=== PATIENT | female | born 1975 | race American Indian/Alaskan Native ===

== ENCOUNTER 2017-03-01 00:14 | Emergency (ER) | payer SELFPAY | END 2017-03-01 02:40 | disposition left against medical advice (07) | LOC: ED 00:14 | DX: M79.1 Myalgia (principal); Z53.21 Procedure and treatment not carried out due to patient leaving prior to being seen by health care provider ==

== ENCOUNTER 2017-07-19 08:59 | Emergency (ER) | payer MEDICAID, OTHER ==
[2017-07-19] MEDS ORDERED: CATAPRES ONE (09:12)
[2017-07-19] MEDS ORDERED: CATAPRES PO ONE ×3 (09:15→13:39)
--- NOTE | 2017-07-19 10:48 | Emergency Department Report ---
Upper Extremity - HPI Chief Complaint: Neck Pain/Injury Stated Complaint: LEFT FLANK PAIN Time Seen by Provider: 07/19/17 10:39 Upper Extremity: Left Shoulder Occurred When: 1 Day Mechanism: Unsure Severity: severe Symptoms: Yes Pain with Movement, Yes Limited Range of Movement, No Deformity, No Numbness, No Weakness, No Swelling, No Bruising/Ecchymosis, No Laceration or Abrasion Other History: This is a 41 y.o. female that presents with left shoulder pain for 2 days. Patient reports pain started last night. She was unable to move left arm when she got home from work. 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 She does not recall injury. She have not taken anything for symptom relief. Denies numbness/tingling, swelling, redness, or injury. ED Review of Systems ROS: Stated complaint: LEFT FLANK PAIN Other details as noted in HPI Constitutional: denies: chills, fever Respiratory: denies: cough, shortness of breath, wheezing Cardiovascular: denies: chest pain, palpitations, edema, syncope Gastrointestinal: denies: abdominal pain, nausea, diarrhea Musculoskeletal: arthralgia (left shoulder pain, decreased ROM). denies: back pain, joint swelling Skin: denies: rash, lesions, change in color Neurological: denies: headache, weakness, numbness, paresthesias Psychiatric: denies: anxiety, depression ED Past Medical Hx - Past Medical History Hx Hypertension: Yes - Surgical History Past Surgical History?: No - Social History Smoking Status: Current Every Day Smoker Substance Use Type: None - Medications Home Medications: Home Medications Medication Instructions Recorded Confirmed Last Taken Type Amlodipine Besylate/Benazepril 1 cap PO DAILY 01/25/13 01/25/13 Unknown History [Amlodipine-Benazepril 10-20 mg] Hydrochlorothiazide [HCTZ] 01/25/13 01/25/13 Unknown History Lisinopril [Zestril] 10 mg PO QDAY 01/25/13 01/25/13 Unknown History Diclofenac Potassium 50 mg PO TID PRN #20 tablet 07/19/17 Unknown Rx tiZANidine [Zanaflex] 4 mg PO TID PRN #15 tablet 07/19/17 Unknown Rx Upper Extremity Exam - Exam General: Vital signs noted. No distress. Alert and acting appropriately. Head and Torso: No HEENT Abnormality, No Neck Tenderness, No Chest/Lungs Abnormality, No Abdominal Tenderness, No Back Tenderness Shoulder Exam: Yes Shoulder Tenderness, Yes AC Joint Tenderness (subacromial tenderness), No Clavicle Tenderness, No Normal Range of Motion in Shoulder ( painful passive and active ROM. There is pain at 60 degree at passive ROM.), No Shoulder Deformity Arm Exam: No Arm/Humerus Tenderness, No Arm Deformity Elbow: Yes Normal Range of Motion in Elbow, No Elbow Tenderness, No Elbow Deformity Forearm: No Forearm Tenderness, No Forearm Deformity, No Pain with Pronation, No Pain with Supination Wrist: Yes Normal ROM in Wrist, No Wrist Tenderness, No Wrist Deformity, No Snuffbox Tenderness, No Pain with Axial Thumb Compression Hand: Yes Normal ROM in Digit(s), No Hand Tenderness, No Hand Deformity, No Digit Tenderness, No Digit(s) Deformity, No Tendon Dysfunction CMS Exam: Yes Normal Distal Pulses, Yes Normal Capillary Refill, Yes Normal Distal Sensation, No Broken Skin ED Course Vital Signs 07/19/17 07/19/17 07/19/17 09:04 09:10 10:10 Temperature 98.6 F 98.6 F Pulse Rate 89 Respiratory 16 Rate Blood Pressure 199/120 196/110 [Right] O2 Sat by Pulse 99 Oximetry ED Medical Decision Making - Radiology Data Radiology results: report reviewed XR left shoulder: Routine views demonstrate normal bony and soft tissue structures with normal joint alignment of the shoulder. - Medical Decision Making This is a 41 y.o. female presents with left shoulder pain that is radiating down arm for 1 day. Patient was examined by me. Physical findings susceptible of tendinopathy. There is subacromial tenderness and painful passive and active ROM. There is pain at 60 degree at passive ROM. Xray of left shoulder obtained and normal scan. Patient blood pressure elevated. History of BP on amlodipine and HCTZ. Given catapress 0.1 mg x 3 doses and potassium 40 mEq once in ER. Blood pressure trending down. Patient informed of results. Plan discussed with patient to discharge home and treat outpatient. Start diclofenac and zanaflax. Patient discharged home in stable condition. Follow up with PCP in 2-3 days. Critical care attestation.: If time is entered above; I have spent that time in minutes in the direct care of this critically ill patient, excluding procedure time. ED Disposition Clinical Impression: Tendinitis of shoulder Qualifiers: Laterality: left Qualified Code(s): M75.82 - Other shoulder lesions, left shoulder Hypertension Qualifiers: Hypertension type: essential hypertension Qualified Code(s): I10 - Essential ( primary) hypertension Disposition: TO HOME OR SELFCARE Is pt being admited?: No Does the pt Need Aspirin: No Condition: Stable Instructions: Tendinitis (ED), Hypertension (ED) Additional Instructions: Rest Use ice or heat on affected area for 20 minutes and off for 2 hours. Take pain medication as needed for pain. Don't drive or operate heavy machinery while taking muscle relaxers because they may cause drowsiness. Follow up with Primary Care Provider in 2-3 days for management of hypertension (elevated blood pressure). Prescriptions: Diclofenac Potassium 50 mg PO TID PRN #20 tablet PRN Reason: Pain tiZANidine [Zanaflex] 4 mg PO TID PRN #15 tablet PRN Reason: Muscle Spasm Referrals: [facility] [Outside] - 3-5 Days [facility] [Outside] - 3-[address] [facility] [Outside] - 3-5 Days Forms: Work/School Release Form(ED) Time of Disposition: 12:45 Print Language: YORUBA
[2017-07-19] MEDS ORDERED: NORCO 7.5/325 PO ONE (11:09)
--- NOTE | 2017-07-19 12:18 | XRay Report ---
LEFT SHOULDER: History: Left shoulder pain. Routine views demonstrate normal bony and soft tissue structures with normal joint alignment of the shoulder. IMPRESSION: Normal study.
[2017-07-19] MEDS ORDERED: DECADRON IM ONE (12:55)
[2017-07-19] MEDS ORDERED: K-DUR PO ONE (13:34)
[2017-07-19 14:40] VITALS: BP 128/83
== END 2017-07-19 15:19 | disposition home or self-care (01) ==
LOC: ED 08:59
DX: M75.82 Other shoulder lesions, left shoulder (principal); I10 Essential (primary) hypertension; F17.200 Nicotine dependence, unspecified, uncomplicated
CPT/HCPCS: 73030; 96372; 99283; J1100

== ENCOUNTER 2019-01-21 21:03 | Emergency (ER) | payer OTHER ==
[2019-01-22] MEDS ORDERED: CATAPRES PO ONE (00:56)
--- NOTE | 2019-01-22 01:53 | Cat Scan Report ---
CT head without contrast INDICATION : Headache with severe hypertension. TECHNIQUE: Axial imaging performed from the skull apex through the skull base without the use of con trast. All CT examinations performed at this facility utilize dose modulation, iterative reconstruct ion or weight-based dosing, when appropriate, to reduce radiation dose to as low as reasonably achiev able. COMPARISON: None FINDINGS: No acute intracranial hemorrhage or parenchymal abnormality. Ventricles are normal in si ze and appear symmetric. Soft tissues including the orbits appear normal. No acute osseous abnorm ality. Sinuses and mastoid air cells are clear. IMPRESSION: No acute abnormality. Signer Name: Clay Serra MD Signed: 01/22/2019 1:48 AM Workstation Name: [id number]
[2019-01-22 02:28] VITALS: BP 163/102
--- NOTE | 2019-01-22 02:35 | Emergency Department Report ---
ED General Adult HPI - General Chief complaint: High BP Stated complaint: HIGH BP Time Seen by Provider: 01/22/19 02:16 Source: patient Mode of arrival: Ambulatory Limitations: No Limitations - History of Present Illness Initial comments: Ms Hernandes is a 43-year-old -[place] female with a history of hypertension currently prescribed amlodipine hydrochlorothiazide and losartan HIDA patient is nonadherent with blood pressure treatment regimen. patient presents tonight for headache 06/09 follow patient has had similar headaches in past same location, same intensity, same duration. States this is usual when her blood pressure goes up. Headache is relieved with taking blood pressure medications ; however she is out of this time. Pt denies dizziness, no lightheadedness, no n/v ,no cp , no sob , no back pain, pt is a/ox 3 , ambulatory with steady gait, to baseline per patient. Pt has pcp Dr. Coley but was unable to get refills today. Onset/Timin -: days(s) Location: head Radiation: non-radiation Severity scale (0 -10): 3 Quality: aching Consistency: intermittent Improves with: medication (bp medications), rest Worsens with: none Associated Symptoms: headaches. denies: chest pain, fever/chills, malaise, nausea/vomiting, seizure, shortness of breath, syncope, weakness Treatments Prior to Arrival: none - Related Data Home Medications Medication Instructions Recorded Confirmed Last Taken Amlodipine Besylate/Benazepril 1 cap PO DAILY 01/25/13 01/25/13 Unknown [Amlodipine-Benazepril 10-20 mg] Lisinopril [Zestril] 10 mg PO QDAY 01/25/13 01/25/13 Unknown hydroCHLOROthiazide [HCTZ] 01/25/13 01/25/13 Unknown Previous Rx's Medication Instructions Recorded Last Taken Type Diclofenac Potassium 50 mg PO TID PRN #20 tablet 07/19/17 Unknown Rx tiZANidine [Zanaflex] 4 mg PO TID PRN #15 tablet 07/19/17 Unknown Rx Losartan [Cozaar] 50 mg PO QDAY #60 tablet 01/22/19 Unknown Rx amLODIPine [Norvasc] 10 mg PO DAILY #60 tab 01/22/19 Unknown Rx hydroCHLOROthiazide [HCTZ] 25 mg PO QDAY #60 tablet 10/23/19 Unknown Rx Allergies Allergy/AdvReac Type Severity Reaction Status Date / Time No Known Allergies Allergy Unverified 01/25/13 15:13 ED Review of Systems ROS: Stated complaint: HIGH BP Other details as noted in HPI Constitutional: denies: chills, fever Eyes: denies: eye pain, eye discharge, vision change ENT: denies: ear pain, throat pain Respiratory: denies: cough, shortness of breath, wheezing Cardiovascular: denies: chest pain, palpitations Endocrine: no symptoms reported Gastrointestinal: denies: abdominal pain, nausea, diarrhea Genitourinary: as per HPI Musculoskeletal: denies: back pain, joint swelling, arthralgia Skin: denies: rash, lesions Neurological: headache. denies: weakness, numbness, paresthesias, confusion, abnormal gait, vertigo Psychiatric: denies: anxiety, depression Hematological/Lymphatic: denies: easy bleeding, easy bruising ED Past Medical Hx - Past Medical History Hx Hypertension: Yes - Surgical History Past Surgical History?: No - Social History Smoking Status: Current Every Day Smoker Substance Use Type: None - Medications Home Medications: Home Medications Medication Instructions Recorded Confirmed Last Taken Type Amlodipine Besylate/Benazepril 1 cap PO DAILY 01/25/13 01/25/13 Unknown History [Amlodipine-Benazepril 10-20 mg] Lisinopril [Zestril] 10 mg PO QDAY 01/25/13 01/25/13 Unknown History hydroCHLOROthiazide [HCTZ] 01/25/13 01/25/13 Unknown History Diclofenac Potassium 50 mg PO TID PRN #20 tablet 07/19/17 Unknown Rx tiZANidine [Zanaflex] 4 mg PO TID PRN #15 tablet 07/19/17 Unknown Rx Losartan [Cozaar] 50 mg PO QDAY #60 tablet 01/22/19 Unknown Rx amLODIPine [Norvasc] 10 mg PO DAILY #60 tab 01/22/19 Unknown Rx hydroCHLOROthiazide [HCTZ] 25 mg PO QDAY #60 tablet 01/22/19 Unknown Rx ED Physical Exam - General Limitations: No Limitations General appearance: alert, in no apparent distress - Head Head exam: Present: atraumatic, normocephalic - Eye Eye exam: Present: normal appearance, PERRL, EOMI. Absent: conjunctival injection, nystagmus Pupils: Present: normal accommodation - ENT ENT exam: Present: normal orophraynx, mucous membranes moist, TM's normal bilaterally, normal external ear exam - Neck Neck exam: Present: normal inspection, full ROM. Absent: tenderness, meningismus, lymphadenopathy, thyromegaly - Expanded Neck Exam Expanded Neck exam: Absent: tenderness (no posterior vertebral point tenderness, rom intact unrestricted, ), midline deformity, anterior neck swelling, thyroid mass, carotid bruit, tracheal deviation - Respiratory Respiratory exam: Present: normal lung sounds bilaterally, wheezes. Absent: respiratory distress, stridor, chest wall tenderness - Cardiovascular Cardiovascular Exam: Present: regular rate, normal rhythm, normal heart sounds. Absent: systolic murmur, diastolic murmur, rubs, gallop - GI/Abdominal GI/Abdominal exam: Present: soft, normal bowel sounds. Absent: distended, tenderness, bruit, hernia - Rectal Rectal exam: Present: deferred - Extremities Exam Extremities exam: Present: normal inspection, full ROM, normal capillary refill, pedal edema - Back Exam Back exam: Present: normal inspection, full ROM. Absent: tenderness, CVA tenderness (R), CVA tenderness (L), vertebral tenderness, rash noted - Neurological Exam Neurological exam: Present: alert, oriented X3, CN II-XII intact, normal gait, reflexes normal. Absent: motor sensory deficit - Expanded Neurological Exam Expanded Patient oriented to: Present: person, place, time Speech: Present: fluid speech Cranial nerves: EOM's Intact: Normal, Gag Reflex: Normal, Tongue Deviation: Normal, Nystagmus: Normal, Facial Sensation: Normal Upper motor neuron: Carlito Neglect: Normal, Pronator Drift: Normal Motor strength exam: RUE: 5, LUE: 5, RLE: 5, LLE: 5 DTR: bicep (R): 2+, bicep (L): 2+, ankle (R): 2+, ankle (L): 2+ Best Eye Response ([place]): (4) open spontaneously Best Motor Response ([place]): (6) obeys commands Best Verbal Response (Ray): (5) oriented [place] Total: 15 - Psychiatric Psychiatric exam: Present: normal affect, normal mood - Skin Skin exam: Present: warm, dry, intact, normal color. Absent: rash ED Course Vital Signs 01/21/19 01/22/19 01/22/19 22:05 00:46 01:03 Temperature 98.4 F 98.5 F Pulse Rate 88 84 84 Respiratory 18 16 Rate Blood Pressure 219/127 223/120 223/120 Blood Pressure [Left] O2 Sat by Pulse 99 99 Oximetry 01/22/19 01/22/19 01:29 02:27 Temperature Pulse Rate 78 80 Respiratory 16 18 Rate Blood Pressure Blood Pressure 208/127 163/102 [Left] O2 Sat by Pulse 100 99 Oximetry ED Medical Decision Making - Radiology Data Radiology results: report reviewed, image reviewed Ordering Physician: TANIA CADENA MD Date of Service: 01/22/19 Procedure(s): CT head/brain wo con Accession Number(s): [id number] cc: TANIA CADENA MD CT head without contrast INDICATION : Headache with severe hypertension. TECHNIQUE: Axial imaging performed from the skull apex through the skull base without the use of contrast. All CT examinations performed at this facility utilize dose modulation, iterative reconstruction or weight-based dosing, when appropriate, to reduce radiation dose to as low as reasonably achievable. COMPARISON: None FINDINGS: No acute intracranial hemorrhage or parenchymal abnormality. Ventricles are normal in size and appear symmetric. Soft tissues including the orbits appear normal. No acute osseous abnormality. Sinuses and mastoid air cells are clear. IMPRESSION: No acute abnormality. Signer Name: Clay Serra MD Signed: 01/22/2019 1:48 AM Workstation Name: [id number] Transcribed By: Dictated By: Clay Serra MD Electronically Authenticated By: Clay Serra MD Signed Date/Time: 01/22/19147 DD/ 6 TD/TT: - Medical Decision Making bp improved with clonidine, pt denies headache at this time states is relieved to 0/10. ct head is normal no mass no bleed, no abnormality, pt declines further workup or diagnositics. bp irecheck noted improved. plan refill bp medications, follow up with pcp in 2 days , maintain bp log, return to ed if symptoms worsen, pt verbalized agreement and understanding of discharge plan. pt dc'd to home in stable condition at this time. Critical care attestation.: If time is entered above; I have spent that time in minutes in the direct care of this critically ill patient, excluding procedure time. ED Disposition Clinical Impression: HTN (hypertension) Qualifiers: Hypertension type: essential hypertension Qualified Code(s): I10 - Essential (primary) hypertension Headache Qualifiers: Headache type: unspecified Headache chronicity pattern: acute headache Intractability: not intractable Qualified Code(s): R51 - Headache Disposition: DC-01 TO HOME OR SELFCARE Is pt being admited?: No Does the pt Need Aspirin: No Condition: Stable Instructions: Hypertension (ED) Prescriptions: Losartan [Cozaar] 50 mg PO QDAY #60 tablet hydroCHLOROthiazide [HCTZ] 25 mg PO QDAY #60 tablet amLODIPine [Norvasc] 10 mg PO DAILY #60 tab Referrals: MILKA DELEON MD [Primary Care Provider] - 3-5 Days MAJOR DAILEY MD [Staff Physician] - 3-5 Days Forms: Work/School Release Form(ED) Time of Disposition: 02:44
== END 2019-01-22 03:18 | disposition home or self-care (01) ==
LOC: ED 21:03
DX: R51 Headache (principal); I10 Essential (primary) hypertension; F17.200 Nicotine dependence, unspecified, uncomplicated; Z79.899 Other long term (current) drug therapy
CPT/HCPCS: 70450